=== PATIENT | female | born 1990 | race Caucasian/White ===

== ENCOUNTER → 2018-09-30 | Outpatient (CLI) | payer OTHER | LOC: FIMAGING 11:10 | PROVIDERS: ATTEND Student in an Organized Health Care Education/Training Program | DX: O09.892 Supervision of other high risk pregnancies, second trimester (principal); Z3A.20 20 weeks gestation of pregnancy ==

== ENCOUNTER → 2018-10-21 | Outpatient (CLI) | payer OTHER | LOC: FIMAGING 08:33 ==

== ENCOUNTER → 2018-10-30 | Outpatient (CLI) | payer OTHER | LOC: FIMAGING 09:01 ==